=== PATIENT | female | born 1980 | race American Indian/Alaskan Native ===

== ENCOUNTER 2017-10-26 19:59 | Emergency (ER) | payer MEDICAID ==
[2017-10-27] MEDS ORDERED: TYLENOL PO ONE (02:53)
[2017-10-27] MEDS ORDERED: TESSALON PERLES PO ONE (02:53)
--- NOTE | 2017-10-27 03:17 | XRay Report ---
FINAL REPORT EXAM: XR CHEST ROUTINE 2V HISTORY: cough COMPARISON: None available. FINDINGS:: Frontal and lateral views of the chest obtained. Cardiac silhouette is within normal limits. No focal consolidation or effusion. No pneumothorax. Visualized bony thorax is grossly intact. IMPRESSION:: No acute findings.
[2017-10-27] MEDS ORDERED: XYLOCAINE 1% MPF 5 mL INFILTRATI ONE (03:24)
[2017-10-27] MEDS ORDERED: ROCEPHIN IM ONE (03:24)
--- NOTE | 2017-10-27 03:28 | Emergency Department Report ---
- General Chief Complaint: Upper Respiratory Infection Stated Complaint: SORE THROAT/BACK PAIN Time Seen by Provider: 10/27/17 02:54 Source: patient Mode of arrival: Ambulatory Limitations: No Limitations - History of Present Illness Initial Comments: This is a 36-year-old female nontoxic, well nourished in appearance, no acute signs of distress presents to the ED with c/o of productive cough, fever, chills , sore throat, body aches, rhinorrhea, nasal congestion x2 days. Patient describes productive cough as yellow mucus production. Patient agrees to sick contact with cousin which has the flu. Patient denies any recent travels, long car, recent hospital stays. Patient denies any calf pain or calf tenderness. Patient denies any chest pain, short of breath, fever, chills, nausea, vomiting , hemoptysis, hoarseness, drooling,numbness, tingling, headache or stiff neck. Patient denies any significant past medical history. Patient states allergies to Motrin. MD Complaint: cough, sore throat, rhinorrhea, nasal congestion -: days(s) (2) Severity: mild Severity scale (0 -10): 8 Quality: aching Consistency: constant Improves With: nothing Worsens With: nothing Associated Symptoms: rhinorrhea, nasal congestion, sore throat, cough. denies: fever, chills, myalgias, diaphoresis, headache, stiff neck, chest pain, shortness of breath, abdominal pain, nausea, vomiting, diarrhea, dysuria, rash, confusion, right sweats, weight loss, epistaxis, hoarseness, ear pain Treatments Prior to Arrival: none - Related Data Previous Rx's Medication Instructions Recorded Last Taken Type HYDROcodone/APAP 5-325 [[place] 1 each PO Q6HR PRN #20 tablet 01/09/14 Unknown Rx 5/325 mg] Ibuprofen [Motrin] 600 mg PO Q8H PRN #60 tablet 01/09/14 Unknown Rx metroNIDAZOLE [Flagyl] 500 mg PO BID #20 tablet 01/09/14 Unknown Rx predniSONE [Deltasone] 50 mg PO QDAY #5 tab 01/09/14 Unknown Rx Acetaminophen/Codeine [Tylenol #3] 1 tab PO Q6H PRN #8 tab 01/08/15 Unknown Rx Promethazine [Phenergan] 25 mg PO Q6H PRN #12 tablet 01/08/15 Unknown Rx Pnv,Calcium 72/Iron/Folic Acid 1 each PO QDAY #90 tablet 07/27/15 Unknown Rx [ Vitamin with Low Iron] metroNIDAZOLE [Metrogel 1%] 1 applicatio TP QDAY #1 gel..gram. 07/27/15 Unknown Rx Ferrous Sulfate [Feosol 325 MG tab] 325 mg PO BID #60 tablet 02/28/16 Unknown Rx HYDROcodone/APAP 5-325 [[place] 1 each PO Q6H PRN #20 tablet 02/28/16 Unknown Rx 5-325 mg TAB] Vit-Fe Fumar-FA [ 1 each PO QDAY #30 tablet 02/28/16 Unknown Rx Vitamin] Acetaminophen [Acetaminophen 8 650 mg PO Q8H PRN #30 tablet.er 10/27/17 Unknown Rx Hour] Amoxicillin/K Clav Tab [Augmentin 1 tab PO Q12HR #20 tab 10/27/17 Unknown Rx 875 mg] Benzonatate [Tessalon Perle] 100 mg PO Q6H PRN #20 capsule 10/27/17 Unknown Rx Nystas/Diphen/Xyl Visc/Mylanta 30 ml MM Q4H PRN 10 Days ml 10/27/17 Unknown Rx [Magic Mouthwash] Oseltamivir [Tamiflu] 75 mg PO BID #14 cap 10/27/17 Unknown Rx Allergies Allergy/AdvReac Type Severity Reaction Status Date / Time ibuprofen Allergy Itching Verified 05/26/16 11:48 ED Review of Systems ROS: Stated complaint: SORE THROAT/BACK PAIN Other details as noted in HPI Constitutional: denies: chills, fever Eyes: denies: eye pain, eye discharge, vision change ENT: throat pain. denies: ear pain Respiratory: cough. denies: shortness of breath, wheezing Cardiovascular: denies: chest pain, palpitations Endocrine: no symptoms reported Gastrointestinal: denies: abdominal pain, nausea, diarrhea Genitourinary: denies: urgency, dysuria, discharge Musculoskeletal: denies: back pain, joint swelling, arthralgia Skin: denies: rash, lesions Neurological: denies: headache, weakness, paresthesias Psychiatric: denies: anxiety, depression Hematological/Lymphatic: denies: easy bleeding, easy bruising ED Past Medical Hx - Past Medical History Hx Hypertension: No Hx Congestive Heart Failure: No Hx Diabetes: No Hx Deep Vein Thrombosis: No Hx Renal Disease: No Hx Sickle Cell Disease: No Hx Seizures: No Hx Asthma: Yes Hx COPD: No - Surgical History Past Surgical History?: No - Social History Smoking Status: Current Every Day Smoker Substance Use Type: Alcohol, Marijuana - Medications Home Medications: Home Medications Medication Instructions Recorded Confirmed Last Taken Type HYDROcodone/APAP 5-325 [[place] 1 each PO Q6HR PRN #20 tablet 01/09/14 02/28/16 Unknown Rx 5/325 mg] Ibuprofen [Motrin] 600 mg PO Q8H PRN #60 tablet 01/09/14 02/28/16 Unknown Rx metroNIDAZOLE [Flagyl] 500 mg PO BID #20 tablet 01/09/14 02/28/16 Unknown Rx predniSONE [Deltasone] 50 mg PO QDAY #5 tab 01/09/14 02/28/16 Unknown Rx Acetaminophen/Codeine [Tylenol #3] 1 tab PO Q6H PRN #8 tab 01/08/15 02/28/16 Unknown Rx Promethazine [Phenergan] 25 mg PO Q6H PRN #12 tablet 01/08/15 02/28/16 Unknown Rx Pnv,Calcium 72/Iron/Folic Acid 1 each PO QDAY #90 tablet 07/27/15 02/28/16 Unknown Rx [ Vitamin with Low Iron] metroNIDAZOLE [Metrogel 1%] 1 applicatio TP QDAY #1 gel..gram. 07/27/15 Unknown Rx Ferrous Sulfate [Feosol 325 MG tab] 325 mg PO BID #60 tablet 02/28/16 Unknown Rx HYDROcodone/APAP 5-325 [[place] 1 each PO Q6H PRN #20 tablet 02/28/16 Unknown Rx 5-325 mg TAB] Vit-Fe Fumar-FA [ 1 each PO QDAY #30 tablet 02/28/16 Unknown Rx Vitamin] Acetaminophen [Acetaminophen 8 650 mg PO Q8H PRN #30 tablet.er 10/27/17 Unknown Rx Hour] Amoxicillin/K Clav Tab [Augmentin 1 tab PO Q12HR #20 tab 10/27/17 Unknown Rx 875 mg] Benzonatate [Tessalon Perle] 100 mg PO Q6H PRN #20 capsule 10/27/17 Unknown Rx Nystas/Diphen/Xyl Visc/Mylanta 30 ml MM Q4H PRN 10 Days ml 10/27/17 Unknown Rx [Magic Mouthwash] Oseltamivir [Tamiflu] 75 mg PO BID #14 cap 10/27/17 Unknown Rx ED Physical Exam - General Limitations: No Limitations General appearance: alert, in no apparent distress - Head Head exam: Present: atraumatic, normocephalic - Eye Eye exam: Present: normal appearance Pupils: Present: normal accommodation - ENT ENT exam: Present: mucous membranes moist, TM's normal bilaterally, normal external ear exam - Expanded ENT Exam Expanded Ear exam: Present: normal external inspection Mouth exam: Present: normal external inspection, tongue normal. Absent: drooling, trismus, muffled voice, tongue elevation, laceration Teeth exam: Present: normal inspection Throat exam: Positive: tonsillar erythema, tonsillomegaly (2+), tonsillar exudate, other (Uvula midline. No abscess or swelling noted. ). Negative: R peritonsillar mass, L peritonsillar mass - Neck Neck exam: Present: normal inspection, full ROM, lymphadenopathy (bilateral tonsilar). Absent: tenderness, meningismus, thyromegaly - Respiratory Respiratory exam: Present: normal lung sounds bilaterally. Absent: respiratory distress, wheezes, rales, rhonchi, stridor, chest wall tenderness, accessory muscle use, decreased breath sounds, prolonged expiratory - Cardiovascular Cardiovascular Exam: Present: regular rate, normal rhythm, normal heart sounds. Absent: tachycardia, irregular rhythm, systolic murmur, diastolic murmur, rubs , gallop - GI/Abdominal GI/Abdominal exam: Present: soft, normal bowel sounds. Absent: distended, tenderness, guarding, rebound, rigid, diminished bowel sounds - Extremities Exam Extremities exam: Present: normal inspection, full ROM, normal capillary refill. Absent: tenderness, pedal edema, joint swelling, calf tenderness - Back Exam Back exam: Present: normal inspection, full ROM. Absent: tenderness, CVA tenderness (R), CVA tenderness (L), muscle spasm, paraspinal tenderness, vertebral tenderness, rash noted - Neurological Exam Neurological exam: Present: alert, oriented X3, CN II-XII intact, normal gait, reflexes normal - Psychiatric Psychiatric exam: Present: normal affect, normal mood - Skin Skin exam: Present: warm, dry, intact, normal color. Absent: rash ED Course Vital Signs 10/26/17 20:45 Temperature 101.7 F H Pulse Rate 83 Respiratory 20 Rate Blood Pressure 127/79 O2 Sat by Pulse 100 Oximetry - Reevaluation(s) Reevaluation #1: 10/27/17 03:25 Patient is speaking in full sentences with no signs of distress noted. ED Medical Decision Making - Medical Decision Making This is a 36-year-old female that presents with tonsillitis and influenza. Patient is stable and was examined by me. Chest x-ray has been obtained and dictated by radiologist with normal exam. Patient is notified of x-ray results with no questions noted. PAtient recieved 1G Rocephine. Due to patient having symptoms of upper respiratory infection and symptoms of influenza and worsening I will treat patient empirically Tamiflu with Augmentin. Patient is within the >72 hour window for tamiflu. Patient was instructed to increase hydration, rest and take Tylenol for fever episodes. Patient received Tylenol, lidocaine visous, and tesslone perrls in the ED. Vitals stable. Patient is nonfebrile and normal heart rate. Patient was orally hydrated and patient tolerated well known nausea or vomiting. Patient was instructed Follow-up with a primary care doctor in 3-5 days or if symptoms worsen and continue return to emergency room as soon as possible. At time time of discharge, the patient does not seem toxic or ill in appearance. No acute signs of distress noted. Patient agrees to discharge treatment plan of care. No further questions noted by the patient. Critical care attestation.: If time is entered above; I have spent that time in minutes in the direct care of this critically ill patient, excluding procedure time. ED Disposition Clinical Impression: Tonsillitis with exudate, Influenza Disposition: DC-01 TO HOME OR SELFCARE Is pt being admited?: No Does the pt Need Aspirin: No Condition: Stable Instructions: Tonsillitis (ED), Influenza (ED), Amoxicillin/Clavulanate Potassium (By mouth), Oseltamivir (By mouth), Ibuprofen (By mouth), Fever in Adults (ED), Electrolyte Supplement (By mouth) Additional Instructions: Follow-up with a primary care doctor in 3-5 days or if symptoms worsen and continue return to emergency room as soon as possible. Increased rest, hydration and take Tylenol as prescribed for fever. Prescriptions: Acetaminophen [Acetaminophen 8 Hour] 650 mg PO Q8H PRN #30 tablet.er PRN Reason: fever/pain Amoxicillin/K Clav Tab [Augmentin 875 mg] 1 tab PO Q12HR #20 tab Benzonatate [Tessalon Perle] 100 mg PO Q6H PRN #20 capsule PRN Reason: Cough Nystas/Diphen/Xyl Visc/Mylanta [Magic Mouthwash] 30 ml MM Q4H PRN 10 Days ml PRN Reason: Sore Throat Oseltamivir [Tamiflu] 75 mg PO BID #14 cap Referrals: PRIMARY CAREMD [Primary Care Provider] - 3-5 Days YOON GARDNER MD [Staff Physician] - 3-5 Days [facility] [Outside] - 3-5 Days [facility] [Outside] - 3-5 Days Forms: Work/School Release Form(ED)
[2017-10-27] MEDS ORDERED: LIDOCAINE VISCOUS 2% MM NR (03:30)
[2017-10-27 05:22] VITALS: BP 93/60
== END 2017-10-27 06:50 | disposition home or self-care (01) ==
LOC: ED 19:59
DX: J11.1 Influenza due to unidentified influenza virus with other respiratory manifestations (principal); J45.909 Unspecified asthma, uncomplicated; F17.200 Nicotine dependence, unspecified, uncomplicated; F12.10 Cannabis abuse, uncomplicated; Z88.6 Allergy status to analgesic agent
CPT/HCPCS: 71046; 96372; 99283; J0696

== ENCOUNTER 2019-02-13 01:13 | Emergency (ER) | payer MEDICAID ==
[2019-02-13 01:28] VITALS: BP 102/66
--- NOTE | 2019-02-13 02:44 | XRay Report ---
PROCEDURE: XR SHOULDER 2+V RT TECHNIQUE: 3 views right shoulder were obtained. HISTORY: right shoulder pain COMPARISONS: None FINDINGS: There is minimal subchondral cystic changes of the distal end of the right clavicle. The AC joint oth erwise is unremarkable. The subacromial space appears normal. The glenohumeral joint appears normal. The soft tissues are well-maintained. IMPRESSION: Minimal arthritic changes of the distal end of the right clavicle. Otherwise unremarkable exam.. This document is electronically signed by Duong Cullen MD., February 13 2019 02:42:48 AM ET
[2019-02-13] MEDS ORDERED: TYLENOL PO ONE (04:40)
[2019-02-13] MEDS ORDERED: DELTASONE PO ONE (04:40)
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
== END 2019-02-13 05:25 | disposition home or self-care (01) ==
LOC: ED 01:13
DX: S43.401A Unspecified sprain of right shoulder joint, initial encounter (principal); S46.911A Strain of unspecified muscle, fascia and tendon at shoulder and upper arm level, right arm, initial encounter; J45.909 Unspecified asthma, uncomplicated; F17.200 Nicotine dependence, unspecified, uncomplicated; W22.8XXA Striking against or struck by other objects, initial encounter; Y93.89 Activity, other specified; Y92.89 Other specified places as the place of occurrence of the external cause; Y99.8 Other external cause status
CPT/HCPCS: 73030; 99283; J7512

== ENCOUNTER 2019-05-17 18:09 | Emergency (ER) | payer MEDICAID ==
[2019-05-17 19:21] VITALS: BP 108/73
--- NOTE | 2019-05-17 19:25 | Event Note ---
ED Screening Note Date of service: 05/17/19 Time: 19:22 ED Screening Note: 38 y/o female comes in for 24 hour history of bodyache fever and cough. This initial assessment/diagnostic orders/clinical plan/treatment(s) is/are subject to change based on patients health status, clinical progression and re- assessment by fellow clinical providers in the ED. Further treatment and workup at subsequent clinical providers discretion. Patient/guardian urged not to elope from the ED as their condition may be serious if not clinically assessed and managed. Initial orders include:
--- NOTE | 2019-05-17 20:00 | XRay Report ---
CHEST 2 VIEWS, 05/17/2019 INDICATION: Cough. Fever. COMPARISON: Chest radiograph, 08/29/2018 FINDINGS: Support devices: None Heart: The heart appears within normal limits in size. Lungs/pleura: The lungs are clear of focal airspace disease or significant pleural effusion. Additional findings: No additional acute findings. There is mild kyphosis of the thoracic spine. IMPRESSION: 1. No evidence of acute cardiopulmonary process. Signer Name: Sun Chaudhari MD Signed: 05/17/2019 7:56 PM Workstation Name: [id number]
[2019-05-17] MEDS ORDERED: DECADRON IV ONE (21:44)
[2019-05-17] MEDS ORDERED: IBUPROFEN PO ONE (21:44)
[2019-05-17] MEDS ORDERED: PROAIR IH PRN (21:44)
--- NOTE | 2019-05-17 22:48 | Emergency Department Report ---
ED Shortness of Breath HPI - General Chief Complaint: Dyspnea/Respdistress Stated Complaint: COUGH/SORE THROAT/CHEST/NECK PAIN/WHEEZING Time Seen by Provider: 05/17/19 19:21 Source: patient Mode of arrival: Ambulatory Limitations: No Limitations - History of Present Illness Initial Comments: Patient 38-year-old female with a history of bronchitis current smoker [id number] who presents for a cough productive yellow thick nocturnal fever sore throat or sinus pain and wheezing 3 days wheezing is resolved with albuterol inhaler however other symptoms. Sugars including productive cough there is mild shortness breath no chest pain no nausea vomiting no back pain no diaphoresis patient remains ambulatory at baseline per patient there is no activity intolerance MD Complaint: shortness of breath Onset/Timin -: month(s) Radiation: back Severity: moderate Pain Scale: 5 Quality: sharp Consistency: constant Improves With: nothing Worsens With: movement (environmental exposure ) Known History Of: COPD, asthma, diabetes Associated Symptoms: chest pain (chestwall pain ), fever, cough, sputum production, nausea/vomiting Treatments Prior to Arrival: none - Related Data Previous Rx's Medication Instructions Recorded Last Taken Type HYDROcodone/APAP 5-325 [[place] 1 each PO Q6HR PRN #20 tablet 01/09/14 Unknown Rx 5/325 mg] Ibuprofen [Motrin] 600 mg PO Q8H PRN #60 tablet 01/09/14 Unknown Rx metroNIDAZOLE [Flagyl] 500 mg PO BID #20 tablet 01/09/14 Unknown Rx Acetaminophen/Codeine [Tylenol #3] 1 tab PO Q6H PRN #8 tab 01/08/15 Unknown Rx Promethazine [Phenergan] 25 mg PO Q6H PRN #12 tablet 01/08/15 Unknown Rx Pnv,Calcium 72/Iron/Folic Acid 1 each PO QDAY #90 tablet 07/27/15 Unknown Rx [ Vitamin with Low Iron] metroNIDAZOLE [Metrogel 1%] 1 applicatio TP QDAY #1 gel..gram. 07/27/15 Unknown Rx Ferrous Sulfate [Feosol 325 MG tab] 325 mg PO BID #60 tablet 02/28/16 Unknown Rx HYDROcodone/APAP 5-325 [[place] 1 each PO Q6H PRN #20 tablet 02/28/16 Unknown Rx 5-325 mg TAB] Vit-Fe Fumar-FA [ 1 each PO QDAY #30 tablet 02/28/16 Unknown Rx Vitamin] Acetaminophen [Acetaminophen 8 650 mg PO Q8H PRN #30 tablet.er 10/27/17 Unknown Rx Hour] Amoxicillin/K Clav Tab [Augmentin 1 tab PO Q12HR #20 tab 10/27/17 Unknown Rx 875 mg] Nystas/Diphen/Xyl Visc/Mylanta 30 ml MM Q4H PRN 10 Days ml 10/27/17 Unknown Rx [Magic Mouthwash] Oseltamivir [Tamiflu] 75 mg PO BID #14 cap 10/27/17 Unknown Rx Acetaminophen [Tylenol Extra 500 mg PO TID #20 tablet 08/29/18 Unknown Rx Strength] Albuterol Sulfate [Ventolin HFA] 2 puff IH Q4H PRN #1 hfa.aer.ad 08/29/18 Unknown Rx Benzonatate [Tessalon Perle] 100 mg PO Q6H PRN #20 capsule 08/29/18 Unknown Rx predniSONE [Deltasone] 50 mg PO QDAY #5 tab 08/29/18 Unknown Rx ALBUTEROL Inhaler (OR & NICU) 2 puff IH Q6H PRN #1 inhalation 10/04/18 Unknown Rx [ProAir HFA Inhaler] Acetaminophen 500 mg PO Q8H PRN #12 tablet 10/04/18 Unknown Rx Acetaminophen [Acetaminophen ORAL 10 ml PO QHS PRN #70 ml 10/04/18 Unknown Rx LIQ] Amoxicillin/K Clav Tab [Augmentin 1 tab PO Q12HR #20 tab 10/04/18 Unknown Rx 875MG TAB] Cetirizine HCl [ZyrTEC] 10 mg PO QAM 14 Days #14 capsule 10/04/18 Unknown Rx Fluticasone [Flonase] 1 spray NS QDAY 14 Days #1 bottle 10/04/18 Unknown Rx methylPREDNISolone [Medrol Dose 4 mg PO DAILY #1 tab.ds.pk 10/04/18 Unknown Rx Nba] Baclofen [Lioresal] 10 mg PO TID #21 tab 02/13/19 Unknown Rx traMADol [Ultram] 50 mg PO Q6HR PRN #15 tablet 02/13/19 Unknown Rx ALBUTEROL Inhaler (OR & NICU) 2 puff IH QID PRN #1 inhalation 05/17/19 Unknown Rx [ProAir HFA Inhaler] Acetaminophen [Acetaminophen TAB] 1,000 mg PO Q6HR PRN #30 tablet 05/17/19 Unknown Rx Azithromycin [Zithromax Z-NBA] 250 mg PO DAILY 5 Days #6 tab 05/17/19 Unknown Rx Benzonatate [Tessalon Perles] 100 mg PO Q8HR PRN #30 capsule 05/17/19 Unknown Rx dexAMETHasone [Decadron] 4 mg PO BID 3 Days #6 tablet 05/17/19 Unknown Rx Allergies Allergy/AdvReac Type Severity Reaction Status Date / Time ibuprofen Allergy Itching Verified 05/17/19 18:15 ED Review of Systems ROS: Stated complaint: COUGH/SORE THROAT/CHEST/NECK PAIN/WHEEZING Other details as noted in HPI Constitutional: denies: chills, fever Eyes: denies: eye pain, eye discharge, vision change ENT: congestion. denies: ear pain, throat pain Respiratory: cough, wheezing. denies: shortness of breath Cardiovascular: denies: chest pain, palpitations, dyspnea on exertion, paroxysmal nocturnal dyspnea Endocrine: no symptoms reported Gastrointestinal: denies: nausea, diarrhea Genitourinary: denies: urgency, dysuria, discharge Musculoskeletal: back pain, joint swelling Skin: denies: rash, lesions Neurological: headache. denies: abnormal gait, vertigo Psychiatric: denies: anxiety, depression Hematological/Lymphatic: denies: easy bleeding, easy bruising ED Past Medical Hx - Past Medical History Previous Medical History?: Yes Hx Hypertension: No Hx Congestive Heart Failure: No Hx Diabetes: No Hx Deep Vein Thrombosis: No Hx Renal Disease: No Hx Sickle Cell Disease: No Hx Seizures: No Hx Asthma: Yes Hx COPD: No - Surgical History Past Surgical History?: No - Social History Smoking Status: Current Every Day Smoker Substance Use Type: Alcohol, Marijuana - Medications Home Medications: Home Medications Medication Instructions Recorded Confirmed Last Taken Type HYDROcodone/APAP 5-325 [[place] 1 each PO Q6HR PRN #20 tablet 01/09/14 02/28/16 Unknown Rx 5/325 mg] Ibuprofen [Motrin] 600 mg PO Q8H PRN #60 tablet 01/09/14 02/28/16 Unknown Rx metroNIDAZOLE [Flagyl] 500 mg PO BID #20 tablet 01/09/14 02/28/16 Unknown Rx Acetaminophen/Codeine [Tylenol #3] 1 tab PO Q6H PRN #8 tab 01/08/15 02/28/16 Unknown Rx Promethazine [Phenergan] 25 mg PO Q6H PRN #12 tablet 01/08/15 02/28/16 Unknown Rx Pnv,Calcium 72/Iron/Folic Acid 1 each PO QDAY #90 tablet 07/27/15 02/28/16 Unknown Rx [ Vitamin with Low Iron] metroNIDAZOLE [Metrogel 1%] 1 applicatio TP QDAY #1 gel..gram. 07/27/15 02/28/16 Unknown Rx Ferrous Sulfate [Feosol 325 MG tab] 325 mg PO BID #60 tablet 02/28/16 Unknown Rx HYDROcodone/APAP 5-325 [[place] 1 each PO Q6H PRN #20 tablet 02/28/16 Unknown Rx 5-325 mg TAB] Vit-Fe Fumar-FA [ 1 each PO QDAY #30 tablet 02/28/16 Unknown Rx Vitamin] Acetaminophen [Acetaminophen 8 650 mg PO Q8H PRN #30 tablet.er 10/27/17 Unknown Rx Hour] Amoxicillin/K Clav Tab [Augmentin 1 tab PO Q12HR #20 tab 10/27/17 Unknown Rx 875 mg] Nystas/Diphen/Xyl Visc/Mylanta 30 ml MM Q4H PRN 10 Days ml 10/27/17 Unknown Rx [Magic Mouthwash] Oseltamivir [Tamiflu] 75 mg PO BID #14 cap 10/27/17 Unknown Rx Acetaminophen [Tylenol Extra 500 mg PO TID #20 tablet 08/29/18 Unknown Rx Strength] Albuterol Sulfate [Ventolin HFA] 2 puff IH Q4H PRN #1 hfa.aer.ad 08/29/18 Unknown Rx Benzonatate [Tessalon Perle] 100 mg PO Q6H PRN #20 capsule 08/29/18 Unknown Rx predniSONE [Deltasone] 50 mg PO QDAY #5 tab 08/29/18 Unknown Rx ALBUTEROL Inhaler (OR & NICU) 2 puff IH Q6H PRN #1 inhalation 10/04/18 Unknown Rx [ProAir HFA Inhaler] Acetaminophen 500 mg PO Q8H PRN #12 tablet 10/04/18 Unknown Rx Acetaminophen [Acetaminophen ORAL 10 ml PO QHS PRN #70 ml 10/04/18 Unknown Rx LIQ] Amoxicillin/K Clav Tab [Augmentin 1 tab PO Q12HR #20 tab 10/04/18 Unknown Rx 875MG TAB] Cetirizine HCl [ZyrTEC] 10 mg PO QAM 14 Days #14 capsule 10/04/18 Unknown Rx Fluticasone [Flonase] 1 spray NS QDAY 14 Days #1 bottle 10/04/18 Unknown Rx methylPREDNISolone [Medrol Dose 4 mg PO DAILY #1 tab.ds.pk 10/04/18 Unknown Rx Nba] Baclofen [Lioresal] 10 mg PO TID #21 tab 02/13/19 Unknown Rx traMADol [Ultram] 50 mg PO Q6HR PRN #15 tablet 02/13/19 Unknown Rx ALBUTEROL Inhaler (OR & NICU) 2 puff IH QID PRN #1 inhalation 05/17/19 Unknown Rx [ProAir HFA Inhaler] Acetaminophen [Acetaminophen TAB] 1,000 mg PO Q6HR PRN #30 tablet 05/17/19 Unknown Rx Azithromycin [Zithromax Z-NBA] 250 mg PO DAILY 5 Days #6 tab 05/17/19 Unknown Rx Benzonatate [Tessalon Perles] 100 mg PO Q8HR PRN #30 capsule 05/17/19 Unknown Rx dexAMETHasone [Decadron] 4 mg PO BID 3 Days #6 tablet 05/17/19 Unknown Rx ED Physical Exam - General Limitations: No Limitations General appearance: alert, in no apparent distress - Head Head exam: Present: normocephalic, normal inspection - Eye Eye exam: Present: normal appearance, PERRL, EOMI. Absent: scleral icterus Pupils: Present: normal accommodation - ENT ENT exam: Present: mucous membranes moist - Neck Neck exam: Present: normal inspection - Respiratory Respiratory exam: Present: normal lung sounds bilaterally, wheezes, chest wall tenderness. Absent: respiratory distress, rales, stridor - Cardiovascular Cardiovascular Exam: Present: regular rate, normal rhythm, normal heart sounds. Absent: systolic murmur, diastolic murmur, rubs, gallop - GI/Abdominal GI/Abdominal exam: Present: soft, normal bowel sounds. Absent: distended, tenderness, guarding, rebound, rigid, bruit, hernia - Rectal Rectal exam: Present: deferred - Extremities Exam Extremities exam: Present: normal inspection, full ROM, normal capillary refill. Absent: tenderness, pedal edema, joint swelling, calf tenderness - Back Exam Back exam: Present: normal inspection, full ROM. Absent: tenderness, CVA tenderness (R), CVA tenderness (L), muscle spasm, paraspinal tenderness, rash noted - Neurological Exam Neurological exam: Present: alert, oriented X3, CN II-XII intact, normal gait, reflexes normal - Psychiatric Psychiatric exam: Present: normal affect, normal mood - Skin Skin exam: Present: warm, dry, intact, normal color. Absent: rash ED Course Vital Signs 05/17/19 19:18 Temperature 99.9 F H Pulse Rate 123 H Respiratory 22 Rate Blood Pressure 108/73 O2 Sat by Pulse 99 Oximetry ED Medical Decision Making - Radiology Data Radiology results: report reviewed, image reviewed Ordering Physician: KORY BRAND Date of Service: 05/17/19 Procedure(s): XR chest routine 2V Accession Number(s): [id number] cc: KORY BRAND Fluoro Time In Minutes: CHEST 2 VIEWS, 05/17/2019 INDICATION: Cough. Fever. COMPARISON: Chest radiograph, 08/29/2018 FINDINGS: Support devices: None Heart: The heart appears within normal limits in size. Lungs/pleura: The lungs are clear of focal airspace disease or significant ple ural effusion. Additional findings: No additional acute findings. There is mild kyphosis of the thoracic spine. IMPRESSION: 1. No evidence of acute cardiopulmonary process. Signer Name: Sun Chaudhari MD Signed: 05/17/2019 7:56 PM Workstation Name: [id number] Transcribed By: EB Dictated By: Sun Chaudhari MD Electronically Authenticated By: Sun Chaudhari MD Signed Date/Time: 05/17/191955 DD/ 54 TD/TT: - Medical Decision Making Symptoms improved plan received azithromycin and Tylenol Tessalon Perles continue albuterol return to emergency department should symptoms worsen pt verbaled agreement and understanding of discharge plan. Critical care attestation.: If time is entered above; I have spent that time in minutes in the direct care of this critically ill patient, excluding procedure time. ED Disposition Clinical Impression: Bronchitis, Upper respiratory tract infectious disease Disposition: - TO HOME OR SELFCARE Is pt being admited?: No Does the pt Need Aspirin: No Condition: Stable Instructions: Chronic Bronchitis (ED) Prescriptions: Acetaminophen [Acetaminophen TAB] 1,000 mg PO Q6HR PRN #30 tablet PRN Reason: pain dexAMETHasone [Decadron] 4 mg PO BID 3 Days #6 tablet ALBUTEROL Inhaler (OR & NICU) [ProAir HFA Inhaler] 2 puff IH QID PRN #1 inhalation PRN Reason: Shortness Of Breath Benzonatate [Tessalon Perles] 100 mg PO Q8HR PRN #30 capsule PRN Reason: Cough Azithromycin [Zithromax Z-NBA] 250 mg PO DAILY 5 Days #6 tab Referrals: VALORIE HI MD [Primary Care Provider] - 3-5 Days Forms: Work/School Release Form(ED) Time of Disposition: 23:16
[2019-05-17] MEDS ORDERED: TYLENOL PO ONE (22:53)
[2019-05-17] MEDS ORDERED: TYLENOL ONE (22:54)
[2019-05-17] MEDS ORDERED: PROVENTIL IH PRN (23:00)
== END 2019-05-17 23:47 | disposition home or self-care (01) ==
LOC: ED 18:09
DX: J20.9 Acute bronchitis, unspecified (principal); J06.9 Acute upper respiratory infection, unspecified; J45.909 Unspecified asthma, uncomplicated; F17.200 Nicotine dependence, unspecified, uncomplicated; F12.10 Cannabis abuse, uncomplicated; Z79.899 Other long term (current) drug therapy; Z88.6 Allergy status to analgesic agent
CPT/HCPCS: 71046; 94640; 96374; 99283; J1100

== ENCOUNTER 2019-10-07 15:22 | Emergency (ER) | payer MEDICAID ==
[2019-10-07 17:19] VITALS: BP 115/79
--- NOTE | 2019-10-07 17:37 | Emergency Department Report ---
Upper Respiratory HPI - HPI Chief Complaint: Upper Respiratory Infection Stated Complaint: COUGH,STOMACH PAIN, VOMITING Time Seen by Provider: 10/07/19 17:19 Duration: 2 Days URI Symptoms: Rhinorrhea: Yes, Sore Throat: No, Ear Pain: No, Cough: Yes, Shortness of Breath: No, Sick Contacts: No, Unable to Take Fluids: No, Urine Output Abnormal: No, Listless Behavior: No Other History: This is a 38-year-old female nontoxic well in appearnce with no signs of distress presents with dry body aches, subjective fever, chills, nonproductive cough x2 days. Patient denies any chest pain, shortness of breathe, nausea, vomiting, headache, stiff neck, abdominal pain, numbness or tingling. Patient denies any recent travels, long car rides, or recent hospital stays. Stated allergies to Ibuprofen. - Home Meds and Allergies Home Medications: Previous Rx's Medication Instructions Recorded Last Taken Type HYDROcodone/APAP 5-325 [[place] 1 each PO Q6HR PRN #20 tablet 01/09/14 Unknown Rx 5/325 mg] Ibuprofen [Motrin] 600 mg PO Q8H PRN #60 tablet 01/09/14 Unknown Rx metroNIDAZOLE [Flagyl] 500 mg PO BID #20 tablet 01/09/14 Unknown Rx Acetaminophen/Codeine [Tylenol #3] 1 tab PO Q6H PRN #8 tab 01/08/15 Unknown Rx Promethazine [Phenergan] 25 mg PO Q6H PRN #12 tablet 01/08/15 Unknown Rx Pnv,Calcium 72/Iron/Folic Acid 1 each PO QDAY #90 tablet 07/27/15 Unknown Rx [ Vitamin with Low Iron] metroNIDAZOLE [Metrogel 1%] 1 applicatio TP QDAY #1 gel..gram. 07/27/15 Unknown Rx Ferrous Sulfate [Feosol 325 MG tab] 325 mg PO BID #60 tablet 02/28/16 Unknown Rx HYDROcodone/APAP 5-325 [[place] 1 each PO Q6H PRN #20 tablet 02/28/16 Unknown Rx 5-325 mg TAB] Vit-Fe Fumar-FA [ 1 each PO QDAY #30 tablet 02/28/16 Unknown Rx Vitamin] Acetaminophen [Acetaminophen 8 650 mg PO Q8H PRN #30 tablet.er 10/27/17 Unknown Rx Hour] Amoxicillin/K Clav Tab [Augmentin 1 tab PO Q12HR #20 tab 10/27/17 Unknown Rx 875 mg] Nystas/Diphen/Xyl Visc/Mylanta 30 ml MM Q4H PRN 10 Days ml 10/27/17 Unknown Rx [Magic Mouthwash] Oseltamivir [Tamiflu] 75 mg PO BID #14 cap 10/27/17 Unknown Rx Acetaminophen [Tylenol Extra 500 mg PO TID #20 tablet 08/29/18 Unknown Rx Strength] Albuterol Sulfate [Ventolin HFA] 2 puff IH Q4H PRN #1 hfa.aer.ad 08/29/18 Unknown Rx Benzonatate [Tessalon Perle] 100 mg PO Q6H PRN #20 capsule 08/29/18 Unknown Rx predniSONE [Deltasone] 50 mg PO QDAY #5 tab 08/29/18 Unknown Rx Acetaminophen 500 mg PO Q8H PRN #12 tablet 10/04/18 Unknown Rx Acetaminophen [Acetaminophen ORAL 10 ml PO QHS PRN #70 ml 10/04/18 Unknown Rx LIQ] Albuterol INH(or & Nicu Only) 2 puff IH Q6H PRN #1 inhalation 10/04/18 Unknown Rx [ProAir HFA Inhaler] Amoxicillin/K Clav Tab [Augmentin 1 tab PO Q12HR #20 tab 10/04/18 Unknown Rx 875MG TAB] Cetirizine HCl [ZyrTEC] 10 mg PO QAM 14 Days #14 capsule 10/04/18 Unknown Rx Fluticasone [Flonase] 1 spray NS QDAY 14 Days #1 bottle 10/04/18 Unknown Rx methylPREDNISolone [Medrol Dose 4 mg PO DAILY #1 tab.ds.pk 10/04/18 Unknown Rx Heather] Baclofen [Lioresal] 10 mg PO TID #21 tab 02/13/19 Unknown Rx traMADoL [Ultram] 50 mg PO Q6HR PRN #15 tablet 02/13/19 Unknown Rx Acetaminophen [Acetaminophen TAB] 1,000 mg PO Q6HR PRN #30 tablet 05/17/19 Unknown Rx Albuterol INH(or & Nicu Only) 2 puff IH QID PRN #1 inhalation 05/17/19 Unknown Rx [ProAir HFA Inhaler] Azithromycin [Zithromax Z-HEATHER] 250 mg PO DAILY 5 Days #6 tab 05/17/19 Unknown Rx Benzonatate [Tessalon Perles] 100 mg PO Q8HR PRN #30 capsule 05/17/19 Unknown Rx dexAMETHasone [Decadron] 4 mg PO BID 3 Days #6 tablet 05/17/19 Unknown Rx Benzonatate [Tessalon Perles] 100 mg PO Q8HR PRN #20 capsule 10/07/19 Unknown Rx Oseltamivir [Tamiflu] 75 mg PO BID #14 cap 10/07/19 Unknown Rx Allergies/Adverse Reactions: Allergies Allergy/AdvReac Type Severity Reaction Status Date / Time ibuprofen Allergy Itching Verified 05/17/19 18:15 ED Review of Systems ROS: Stated complaint: COUGH,STOMACH PAIN, VOMITING Other details as noted in HPI Constitutional: denies: chills, fever Eyes: denies: eye pain, eye discharge, vision change ENT: congestion. denies: ear pain, throat pain Respiratory: cough. denies: shortness of breath, wheezing Cardiovascular: denies: chest pain, palpitations Endocrine: no symptoms reported Gastrointestinal: denies: abdominal pain, nausea, diarrhea Genitourinary: denies: urgency, dysuria, discharge Musculoskeletal: denies: back pain, joint swelling, arthralgia Skin: denies: rash, lesions Neurological: denies: headache, weakness, paresthesias Psychiatric: denies: anxiety, depression Hematological/Lymphatic: denies: easy bleeding, easy bruising ED Past Medical Hx - Past Medical History Previous Medical History?: Yes Hx Hypertension: No Hx Congestive Heart Failure: No Hx Diabetes: No Hx Deep Vein Thrombosis: No Hx Renal Disease: No Hx Sickle Cell Disease: No Hx Seizures: No Hx Asthma: Yes Hx COPD: No - Social History Smoking Status: Current Every Day Smoker Substance Use Type: None - Medications Home Medications: Home Medications Medication Instructions Recorded Confirmed Last Taken Type HYDROcodone/APAP 5-325 [[place] 1 each PO Q6HR PRN #20 tablet 01/09/14 02/28/16 Unknown Rx 5/325 mg] Ibuprofen [Motrin] 600 mg PO Q8H PRN #60 tablet 01/09/14 02/28/16 Unknown Rx metroNIDAZOLE [Flagyl] 500 mg PO BID #20 tablet 01/09/14 02/28/16 Unknown Rx Acetaminophen/Codeine [Tylenol #3] 1 tab PO Q6H PRN #8 tab 01/08/15 02/28/16 Unknown Rx Promethazine [Phenergan] 25 mg PO Q6H PRN #12 tablet 01/08/15 02/28/16 Unknown Rx Pnv,Calcium 72/Iron/Folic Acid 1 each PO QDAY #90 tablet 07/27/15 02/28/16 Unknown Rx [ Vitamin with Low Iron] metroNIDAZOLE [Metrogel 1%] 1 applicatio TP QDAY #1 gel..gram. 07/27/15 02/28/16 Unknown Rx Ferrous Sulfate [Feosol 325 MG tab] 325 mg PO BID #60 tablet 02/28/16 Unknown Rx HYDROcodone/APAP 5-325 [[place] 1 each PO Q6H PRN #20 tablet 02/28/16 Unknown Rx 5-325 mg TAB] Vit-Fe Fumar-FA [ 1 each PO QDAY #30 tablet 02/28/16 Unknown Rx Vitamin] Acetaminophen [Acetaminophen 8 650 mg PO Q8H PRN #30 tablet.er 10/27/17 Unknown Rx Hour] Amoxicillin/K Clav Tab [Augmentin 1 tab PO Q12HR #20 tab 10/27/17 Unknown Rx 875 mg] Nystas/Diphen/Xyl Visc/Mylanta 30 ml MM Q4H PRN 10 Days ml 10/27/17 Unknown Rx [Magic Mouthwash] Oseltamivir [Tamiflu] 75 mg PO BID #14 cap 10/27/17 Unknown Rx Acetaminophen [Tylenol Extra 500 mg PO TID #20 tablet 08/29/18 Unknown Rx Strength] Albuterol Sulfate [Ventolin HFA] 2 puff IH Q4H PRN #1 hfa.aer.ad 08/29/18 Unknown Rx Benzonatate [Tessalon Perle] 100 mg PO Q6H PRN #20 capsule 08/29/18 Unknown Rx predniSONE [Deltasone] 50 mg PO QDAY #5 tab 08/29/18 Unknown Rx Acetaminophen 500 mg PO Q8H PRN #12 tablet 10/04/18 Unknown Rx Acetaminophen [Acetaminophen ORAL 10 ml PO QHS PRN #70 ml 10/04/18 Unknown Rx LIQ] Albuterol INH(or & Nicu Only) 2 puff IH Q6H PRN #1 inhalation 10/04/18 Unknown Rx [ProAir HFA Inhaler] Amoxicillin/K Clav Tab [Augmentin 1 tab PO Q12HR #20 tab 10/04/18 Unknown Rx 875MG TAB] Cetirizine HCl [ZyrTEC] 10 mg PO QAM 14 Days #14 capsule 10/04/18 Unknown Rx Fluticasone [Flonase] 1 spray NS QDAY 14 Days #1 bottle 10/04/18 Unknown Rx methylPREDNISolone [Medrol Dose 4 mg PO DAILY #1 tab.ds.pk 10/04/18 Unknown Rx Heather] Baclofen [Lioresal] 10 mg PO TID #21 tab 02/13/19 Unknown Rx traMADoL [Ultram] 50 mg PO Q6HR PRN #15 tablet 02/13/19 Unknown Rx Acetaminophen [Acetaminophen TAB] 1,000 mg PO Q6HR PRN #30 tablet 05/17/19 Unknown Rx Albuterol INH(or & Nicu Only) 2 puff IH QID PRN #1 inhalation 05/17/19 Unknown Rx [ProAir HFA Inhaler] Azithromycin [Zithromax Z-HEATHER] 250 mg PO DAILY 5 Days #6 tab 05/17/19 Unknown Rx Benzonatate [Tessalon Perles] 100 mg PO Q8HR PRN #30 capsule 05/17/19 Unknown Rx dexAMETHasone [Decadron] 4 mg PO BID 3 Days #6 tablet 05/17/19 Unknown Rx Benzonatate [Tessalon Perles] 100 mg PO Q8HR PRN #20 capsule 10/07/19 Unknown Rx Oseltamivir [Tamiflu] 75 mg PO BID #14 cap 10/07/19 Unknown Rx ED Bronchiolitis Physical Exam - Exam General: Vital signs noted. No distress. Alert and acting appropriately. Neurologic: Alert and oriented, no deficits. Musculoskeletal: Unremarkable. ED Physical Exam - General Limitations: No Limitations General appearance: alert, in no apparent distress - Head Head exam: Present: atraumatic, normocephalic - Eye Eye exam: Present: normal appearance - ENT ENT exam: Present: normal exam, normal orophraynx - Neck Neck exam: Present: normal inspection, full ROM. Absent: tenderness, meningismus, lymphadenopathy - Respiratory Respiratory exam: Present: normal lung sounds bilaterally. Absent: respiratory distress, wheezes, rales, rhonchi, stridor, chest wall tenderness, accessory muscle use, decreased breath sounds, prolonged expiratory - Cardiovascular Cardiovascular Exam: Present: regular rate, normal rhythm, normal heart sounds. Absent: bradycardia, tachycardia, irregular rhythm, systolic murmur, diastolic murmur, rubs, gallop - Extremities Exam Extremities exam: Present: normal inspection, full ROM - Back Exam Back exam: Present: normal inspection, full ROM. Absent: tenderness, CVA tenderness (R), CVA tenderness (L), muscle spasm, paraspinal tenderness, vertebral tenderness, rash noted - Neurological Exam Neurological exam: Present: alert, oriented X3, normal gait - Psychiatric Psychiatric exam: Present: normal affect, normal mood - Skin Skin exam: Present: warm, dry, intact, normal color. Absent: rash ED Course Vital Signs 10/07/19 10/07/19 16:06 17:19 Temperature 97.8 F Pulse Rate 57 L Respiratory 16 Rate Blood Pressure 97/60 Blood Pressure 115/79 [Right] O2 Sat by Pulse 100 Oximetry - Reevaluation(s) Reevaluation #1: 10/07/19 17:34 Patient is speaking in full sentences with no signs of distress noted. ED Medical Decision Making - Medical Decision Making 38-year-old female that presents with flu like symptoms. Patient is stable and was examined by me. Will treat patient with tamiflu. Vital signs are stable. Patient was instructed to Follow-up with a primary care doctor in 3-5 days or if symptoms worsen and continue return to emergency room as soon as possible. At time of discharge, the patient does not seem toxic or ill in appearance. No acute signs of distress noted. Patient agrees to discharge treatment plan of care. No further questions noted by the patient. Critical care attestation.: If time is entered above; I have spent that time in minutes in the direct care of this critically ill patient, excluding procedure time. ED Disposition Clinical Impression: Influenza Disposition: DC-01 TO HOME OR SELFCARE Is pt being admited?: No Does the pt Need Aspirin: No Condition: Stable Instructions: Influenza (ED) Additional Instructions: Follow-up with a primary care doctor in 3-5 days or if symptoms worsen and continue return to emergency room as soon as possible. Prescriptions: Oseltamivir [Tamiflu] 75 mg PO BID #14 cap Benzonatate [Tessalon Perles] 100 mg PO Q8HR PRN #20 capsule PRN Reason: Cough Referrals: PRIMARY CARE, [Referring] - 3-5 Days BUFFY BLANCAS MD [Staff Physician] - 3-5 Days [facility] [Outside] - 3-5 Days Forms: Work/School Release Form(ED)
== END 2019-10-07 18:21 | disposition home or self-care (01) ==
LOC: ED 15:22
DX: J11.1 Influenza due to unidentified influenza virus with other respiratory manifestations (principal); J45.909 Unspecified asthma, uncomplicated; F17.200 Nicotine dependence, unspecified, uncomplicated; Z79.1 Long term (current) use of non-steroidal anti-inflammatories (NSAID); Z79.2 Long term (current) use of antibiotics; Z79.899 Other long term (current) drug therapy; Z88.6 Allergy status to analgesic agent
CPT/HCPCS: 99282

== ENCOUNTER 2020-06-22 17:48 | Emergency (ER) | payer MEDICAID ==
[2020-06-22 19:13] VITALS: BP 114/77
[2020-06-23] MEDS ORDERED: IBUPROFEN 600 MG TAB PO ONE (00:41)
[2020-06-23] MEDS ORDERED: IPRATROPIUM/ALBUTEROL SULFATE 3 ML AMPUL.NEB IH ONE (00:41)
[2020-06-23] MEDS ORDERED: predniSONE 20 MG TAB PO ONE (00:41)
--- NOTE | 2020-06-23 01:33 | XRay Report ---
CHEST 1 VIEW INDICATION: cough, wheezing. COMPARISON: 05/17/2019 FINDINGS: Support devices: None. Heart: Normal. Lungs/Pleura: No acute pulmonary or pleural findings. IMPRESSION: 1. No acute findings. Signer Name: Manny Meier MD Signed: 06/23/2020 1:28 AM Workstation Name: [id number]
--- NOTE | 2020-06-23 01:52 | Emergency Department Report ---
- General Chief Complaint: Adult Asthma Stated Complaint: ASTHMA/COUGH Source: patient Mode of arrival: Ambulatory Limitations: No Limitations - History of Present Illness Initial Comments: Patient is a 39-year-old -[place] female with a history of asthma and tobacco abuse who presents to the ED with complaint of acute onset persistent nasal and sinus congestion, frontal sinus pressure, sore throat, persistent dry cough with intermittent wheezing and shortness of breath for the last 1 week despite using her inhaler at home. Patient states that the shortness of breath and the congestion with persistent cough of worsened in the last 2 days. Patient states that her children have had similar symptoms. Patient denies fever, chills, chest pain, dizziness, syncope, abdominal pain, nausea, vomiting, change in vision, dysuria, urinary frequency and urgency or diarrhea. MD Complaint: cough, sore throat, rhinorrhea, nasal congestion, sinus pain, other (Wheezing and shortness of breath) -: Sudden, week(s) (1) Severity: moderate Severity scale (0 -10): 6 Quality: sharp, aching Consistency: constant Improves With: nothing Worsens With: nothing Context: sick contacts Associated Symptoms: denies other symptoms, headache, rhinorrhea, nasal congestion, sore throat, cough, shortness of breath. denies: fever, chills, chest pain, abdominal pain, nausea, vomiting, diarrhea, dysuria, rash, confusion, right sweats, weight loss, epistaxis, hoarseness, other Treatments Prior to Arrival: none - Related Data Previous Rx's Medication Instructions Recorded Last Taken Type HYDROcodone/APAP 5-325 [Wilson 1 each PO Q6HR PRN #20 tablet 01/09/14 Unknown Rx 5/325 mg] metroNIDAZOLE [Flagyl] 500 mg PO BID #20 tablet 01/09/14 Unknown Rx Acetaminophen/Codeine [Tylenol #3] 1 tab PO Q6H PRN #8 tab 01/08/15 Unknown Rx Promethazine [Phenergan] 25 mg PO Q6H PRN #12 tablet 01/08/15 Unknown Rx Pnv,Calcium 72/Iron/Folic Acid 1 each PO QDAY #90 tablet 07/27/15 Unknown Rx [ Vitamin with Low Iron] metroNIDAZOLE [Metrogel 1%] 1 applicatio TP QDAY #1 gel..gram. 07/27/15 Unknown Rx Ferrous Sulfate [Feosol 325 MG tab] 325 mg PO BID #60 tablet 02/28/16 Unknown Rx HYDROcodone/APAP 5-325 [Wilson 1 each PO Q6H PRN #20 tablet 02/28/16 Unknown Rx 5-325 mg TAB] Vit-Fe Fumar-FA [ 1 each PO QDAY #30 tablet 02/28/16 Unknown Rx Vitamin] Acetaminophen [Acetaminophen 8 650 mg PO Q8H PRN #30 tablet.er 10/27/17 Unknown Rx Hour] Amoxicillin/K Clav Tab [Augmentin 1 tab PO Q12HR #20 tab 10/27/17 Unknown Rx 875 mg] Nystas/Diphen/Xyl Visc/Mylanta 30 ml MM Q4H PRN 10 Days ml 10/27/17 Unknown Rx [Magic Mouthwash] Oseltamivir [Tamiflu] 75 mg PO BID #14 cap 10/27/17 Unknown Rx Acetaminophen [Tylenol Extra 500 mg PO TID #20 tablet 08/29/18 Unknown Rx Strength] Albuterol Sulfate [Ventolin HFA] 2 puff IH Q4H PRN #1 hfa.aer.ad 08/29/18 Unknown Rx Benzonatate [Tessalon Perle] 100 mg PO Q6H PRN #20 capsule 08/29/18 Unknown Rx predniSONE [Deltasone] 50 mg PO QDAY #5 tab 08/29/18 Unknown Rx Acetaminophen 500 mg PO Q8H PRN #12 tablet 10/04/18 Unknown Rx Acetaminophen [Acetaminophen ORAL 10 ml PO QHS PRN #70 ml 10/04/18 Unknown Rx LIQ] Albuterol Mdi (or & Nicu Only) 2 puff IH Q6H PRN #1 inhalation 10/04/18 Unknown Rx [ProAir HFA Inhaler] Amoxicillin/K Clav Tab [Augmentin 1 tab PO Q12HR #20 tab 10/04/18 Unknown Rx 875MG TAB] Fluticasone [Flonase] 1 spray NS QDAY 14 Days #1 bottle 10/04/18 Unknown Rx methylPREDNISolone [Medrol Dose 4 mg PO DAILY #1 tab.ds.pk 10/04/18 Unknown Rx Nba] Baclofen [Lioresal] 10 mg PO TID #21 tab 02/13/19 Unknown Rx traMADoL [Ultram] 50 mg PO Q6HR PRN #15 tablet 02/13/19 Unknown Rx Acetaminophen [Acetaminophen TAB] 1,000 mg PO Q6HR PRN #30 tablet 05/17/19 Unknown Rx Albuterol Mdi (or & Nicu Only) 2 puff IH QID PRN #1 inhalation 05/17/19 Unknown Rx [ProAir HFA Inhaler] dexAMETHasone [Decadron] 4 mg PO BID 3 Days #6 tablet 05/17/19 Unknown Rx Benzonatate [Tessalon Perles] 100 mg PO Q8HR PRN #20 capsule 10/07/19 Unknown Rx Oseltamivir [Tamiflu] 75 mg PO BID #14 cap 10/07/19 Unknown Rx Acetaminophen [Tylenol] 500 mg PO Q6HR PRN #30 tablet 06/23/20 Unknown Rx Azithromycin [Zithromax Z-NBA] 250 mg PO DAILY 5 Days #6 tab 06/23/20 Unknown Rx Benzonatate [Tessalon Perles] 100 mg PO Q8HR PRN #30 capsule 06/23/20 Unknown Rx Cetirizine HCl [ZyrTEC 10mg cap] 10 mg PO DAILY 14 Days #30 capsule 06/23/20 Unknown Rx Prednisone [predniSONE 10 mg 10 mg PO .TAPER #21 tab.ds.pk 06/23/20 Unknown Rx (6-Day Pack, 21 Tabs)] Allergies Allergy/AdvReac Type Severity Reaction Status Date / Time ibuprofen Allergy Itching Verified 05/17/19 18:15 ED Review of Systems ROS: Stated complaint: ASTHMA/COUGH Other details as noted in HPI Constitutional: denies: chills, fever Eyes: denies: eye pain, eye discharge, vision change ENT: throat pain, congestion, other (Frontal sinus pressure). denies: ear pain Respiratory: cough, shortness of breath, wheezing Cardiovascular: denies: chest pain, palpitations, edema, syncope Endocrine: no symptoms reported Gastrointestinal: denies: abdominal pain, nausea, vomiting, diarrhea Genitourinary: denies: urgency, dysuria, discharge Musculoskeletal: denies: back pain, joint swelling, arthralgia Skin: denies: rash, lesions Neurological: headache. denies: weakness, paresthesias Psychiatric: denies: anxiety, depression Hematological/Lymphatic: denies: easy bleeding, easy bruising ED Past Medical Hx - Past Medical History Hx Hypertension: No Hx Congestive Heart Failure: No Hx Diabetes: No Hx Deep Vein Thrombosis: No Hx Renal Disease: No Hx Sickle Cell Disease: No Hx Seizures: No Hx Asthma: Yes Hx COPD: No - Social History Smoking Status: Current Every Day Smoker Substance Use Type: None - Medications Home Medications: Home Medications Medication Instructions Recorded Confirmed Last Taken Type HYDROcodone/APAP 5-325 [Wilson 1 each PO Q6HR PRN #20 tablet 01/09/14 02/28/16 Unknown Rx 5/325 mg] metroNIDAZOLE [Flagyl] 500 mg PO BID #20 tablet 01/09/14 02/28/16 Unknown Rx Acetaminophen/Codeine [Tylenol #3] 1 tab PO Q6H PRN #8 tab 01/08/15 02/28/16 Unknown Rx Promethazine [Phenergan] 25 mg PO Q6H PRN #12 tablet 01/08/15 02/28/16 Unknown Rx Pnv,Calcium 72/Iron/Folic Acid 1 each PO QDAY #90 tablet 07/27/15 02/28/16 Unknown Rx [ Vitamin with Low Iron] metroNIDAZOLE [Metrogel 1%] 1 applicatio TP QDAY #1 gel..gram. 07/27/15 02/28/16 Unknown Rx Ferrous Sulfate [Feosol 325 MG tab] 325 mg PO BID #60 tablet 02/28/16 Unknown Rx HYDROcodone/APAP 5-325 [Wilson 1 each PO Q6H PRN #20 tablet 02/28/16 Unknown Rx 5-325 mg TAB] Vit-Fe Fumar-FA [ 1 each PO QDAY #30 tablet 02/28/16 Unknown Rx Vitamin] Acetaminophen [Acetaminophen 8 650 mg PO Q8H PRN #30 tablet.er 10/27/17 Unknown Rx Hour] Amoxicillin/K Clav Tab [Augmentin 1 tab PO Q12HR #20 tab 10/27/17 Unknown Rx 875 mg] Nystas/Diphen/Xyl Visc/Mylanta 30 ml MM Q4H PRN 10 Days ml 10/27/17 Unknown Rx [Magic Mouthwash] Oseltamivir [Tamiflu] 75 mg PO BID #14 cap 10/27/17 Unknown Rx Acetaminophen [Tylenol Extra 500 mg PO TID #20 tablet 08/29/18 Unknown Rx Strength] Albuterol Sulfate [Ventolin HFA] 2 puff IH Q4H PRN #1 hfa.aer.ad 08/29/18 Unknown Rx Benzonatate [Tessalon Perle] 100 mg PO Q6H PRN #20 capsule 08/29/18 Unknown Rx predniSONE [Deltasone] 50 mg PO QDAY #5 tab 08/29/18 Unknown Rx Acetaminophen 500 mg PO Q8H PRN #12 tablet 10/04/18 Unknown Rx Acetaminophen [Acetaminophen ORAL 10 ml PO QHS PRN #70 ml 10/04/18 Unknown Rx LIQ] Albuterol Mdi (or & Nicu Only) 2 puff IH Q6H PRN #1 inhalation 10/04/18 Unknown Rx [ProAir HFA Inhaler] Amoxicillin/K Clav Tab [Augmentin 1 tab PO Q12HR #20 tab 10/04/18 Unknown Rx 875MG TAB] Fluticasone [Flonase] 1 spray NS QDAY 14 Days #1 bottle 10/04/18 Unknown Rx methylPREDNISolone [Medrol Dose 4 mg PO DAILY #1 tab.ds.pk 10/04/18 Unknown Rx Nba] Baclofen [Lioresal] 10 mg PO TID #21 tab 02/13/19 Unknown Rx traMADoL [Ultram] 50 mg PO Q6HR PRN #15 tablet 02/13/19 Unknown Rx Acetaminophen [Acetaminophen TAB] 1,000 mg PO Q6HR PRN #30 tablet 05/17/19 Unknown Rx Albuterol Mdi (or & Nicu Only) 2 puff IH QID PRN #1 inhalation 05/17/19 Unknown Rx [ProAir HFA Inhaler] dexAMETHasone [Decadron] 4 mg PO BID 3 Days #6 tablet 05/17/19 Unknown Rx Benzonatate [Tessalon Perles] 100 mg PO Q8HR PRN #20 capsule 10/07/19 Unknown Rx Oseltamivir [Tamiflu] 75 mg PO BID #14 cap 10/07/19 Unknown Rx Acetaminophen [Tylenol] 500 mg PO Q6HR PRN #30 tablet 06/23/20 Unknown Rx Azithromycin [Zithromax Z-NBA] 250 mg PO DAILY 5 Days #6 tab 06/23/20 Unknown Rx Benzonatate [Tessalon Perles] 100 mg PO Q8HR PRN #30 capsule 06/23/20 Unknown Rx Cetirizine HCl [ZyrTEC 10mg cap] 10 mg PO DAILY 14 Days #30 capsule 06/23/20 Unknown Rx Prednisone [predniSONE 10 mg 10 mg PO .TAPER #21 tab.ds.pk 06/23/20 Unknown Rx (6-Day Pack, 21 Tabs)] ED Physical Exam - General Limitations: No Limitations General appearance: alert, in no apparent distress - Head Head exam: Present: atraumatic, normocephalic, normal inspection - Eye Eye exam: Present: normal appearance, PERRL, EOMI Pupils: Present: normal accommodation - ENT ENT exam: Present: normal orophraynx, mucous membranes moist, TM's normal bilaterally, normal external ear exam, other (Grossly congested nasal passages; palpable frontal sinus tenderness) - Neck Neck exam: Present: normal inspection, full ROM. Absent: tenderness, lymphadenopathy - Respiratory Respiratory exam: Present: wheezes (Mildly diffuse coarse wheezes throughout). Absent: respiratory distress, rales, rhonchi, chest wall tenderness, decreased breath sounds, prolonged expiratory - Cardiovascular Cardiovascular Exam: Present: regular rate, normal rhythm, normal heart sounds. Absent: systolic murmur, diastolic murmur, rubs, gallop - GI/Abdominal GI/Abdominal exam: Present: soft, normal bowel sounds. Absent: tenderness, guarding, hyperactive bowel sounds, hypoactive bowel sounds, organomegaly - Extremities Exam Extremities exam: Present: normal inspection, full ROM, normal capillary refill - Back Exam Back exam: Present: normal inspection, full ROM. Absent: tenderness, CVA tenderness (R), CVA tenderness (L), muscle spasm, vertebral tenderness - Neurological Exam Neurological exam: Present: alert, oriented X3, CN II-XII intact, normal gait, reflexes normal - Psychiatric Psychiatric exam: Present: normal affect, normal mood - Skin Skin exam: Present: warm, dry, intact, normal color. Absent: rash ED Course Vital Signs 06/22/20 06/23/20 19:06 00:30 Temperature 99.6 F Pulse Rate 91 H Pulse Rate [ 82 Bilateral Throughout] Respiratory 18 Rate Respiratory 18 Rate [Bilateral Throughout] Blood Pressure 114/77 [Right] O2 Sat by Pulse 98 Oximetry ED Medical Decision Making - Radiology Data Radiology results: report reviewed, image reviewed Print Report Referring Physician:MARY JANE Nuneztient Name:PLACIDO PICHARDOPatient ID:[id number] of :[id number]:FemaleAccession:[id number] Date:[id number] Status:Finalized Findings [facility] [address] [place] [address] XRay Report Signed Patient: PLACIDO PICHARDO MR#: [id number] : 1980 Acct:[id number] Age/Sex: 39 / F ADM Date: 06/22/20 Loc: ED Attending Dr: Ordering Physician: KORY COLON Date of Service: 06/23/20 Procedure(s): XR chest 1V ap Accession Number(s): [id number] cc: KORY COLON Fluoro Time In Minutes: CHEST 1 VIEW INDICATION: cough, wheezing. COMPARISON: 05/17/2019 FINDINGS: Support devices: None. Heart: Normal. Lungs/Pleura: No acute pulmonary or pleural findings. IMPRESSION: 1. No acute findings. Signer Name: Manny Meier MD Signed: 06/23/2020 1:28 AM Workstation Name: [id number] Transcribed By: SHERI Dictated By: Manny Meier MD Electronically Authenticated By: Manny Meier MD Signed Date/Time: 06/23/20127 DD/ 7 TD/TT: - Medical Decision Making This is a 39-year-old -[place] female with a history of asthma and tobacco abuse who presents to the ED with complaint of acute onset persistent nasal and sinus congestion, frontal sinus pressure, sore throat, persistent dry cough with intermittent wheezing and shortness of breath for the last 1 week despite using her inhaler at home. Patient states that the shortness of breath and the congestion with persistent cough of worsened in the last 2 days. Patient states that her children have had similar symptoms. In the ED, patient is alert and oriented x3 and is not in distress. Patient received DuoNeb treatment in the ED and also steroids. Chest x-ray shows no acute cardiopulmonary abnormalities or pneumonitis. On reevaluation, patient felt better and was discharged home on medications and advised to follow-up with her primary care physician in 5 to 7 days for reevaluation or return to the ED immediately if symptoms get worse. - Differential Diagnosis Bronchitis; asthma; sinusitis; URI; pharyngitis; pneumonia Critical care attestation.: If time is entered above; I have spent that time in minutes in the direct care of this critically ill patient, excluding procedure time. ED Disposition Clinical Impression: Acute bacterial sinusitis, Acute upper respiratory infection, Acute bronchitis with asthma Disposition: TO HOME OR SELFCARE Is pt being admited?: No Does the pt Need Aspirin: No Condition: Stable Instructions: Acute Bronchitis (ED), Asthma (ED), Upper Respiratory Infection (ED), Acute Bacterial Rhinosinusitis (ED) Additional Instructions: The chest x-ray shows no acute cardiopulmonary abnormalities or pneumonitis. Take medication with food, drink plenty of fluids and follow-up with your primary care physician in 7 to 10 days for reevaluation. Return to the ED immediately if symptoms get worse. Prescriptions: Acetaminophen [Tylenol] 500 mg PO Q6HR PRN #30 tablet PRN Reason: Pain , Severe (7-10) Prednisone [predniSONE 10 mg (6-Day Pack, 21 Tabs)] 10 mg PO .TAPER #21 tab.ds.pk Benzonatate [Tessalon Perles] 100 mg PO Q8HR PRN #30 capsule PRN Reason: Cough Azithromycin [Zithromax Z-NBA] 250 mg PO DAILY 5 Days #6 tab Cetirizine HCl [ZyrTEC 10mg cap] 10 mg PO DAILY 14 Days #30 capsule Referrals: [facility] [Provider Group] - 7-10 days Time of Disposition: 01:56 Print Language: AZERI
== END 2020-06-23 02:27 | disposition home or self-care (01) ==
LOC: ED 17:48
DX: J01.80 Other acute sinusitis (principal); B96.89 Other specified bacterial agents as the cause of diseases classified elsewhere; J45.998 Other asthma; J06.9 Acute upper respiratory infection, unspecified; F17.200 Nicotine dependence, unspecified, uncomplicated; Z79.899 Other long term (current) drug therapy; Z88.6 Allergy status to analgesic agent
CPT/HCPCS: 71045; 94640; 99283; J7512; 94644